=== PATIENT | female | born 1985 | race Caucasian/White ===

== ENCOUNTER → 2021-01-22 07:52 | Outpatient (CLI) | payer OTHER, SELFPAY ==
[2021-01-22] MEDS: COVID-19 VACC #1, MRNA(MOD) 100 MCG/0.5 ML VIAL IM (07:59)
== END ==
PROVIDERS: Visit Provider Internal Medicine
DX: Z23 Encounter for immunization (principal)
CPT/HCPCS: 0011A; 91301

== ENCOUNTER → 2021-02-19 15:24 | Outpatient (CLI) | payer OTHER, SELFPAY ==
[2021-02-19] MEDS: COVID-19 VACC #2, MRNA(MOD) 100 MCG/0.5 ML VIAL IM (15:32)
== END ==
PROVIDERS: Visit Provider Internal Medicine
DX: Z23 Encounter for immunization (principal)
CPT/HCPCS: 0012A; 91301

== ENCOUNTER → 2021-09-24 08:50 | Outpatient (CLI) | payer OTHER, SELFPAY ==
[2021-09-24] MEDS: COVID-19 VACC #3, MRNA(MOD) 50 MCG/0.25 ML VIAL IM (08:58)
== END ==
PROVIDERS: Visit Provider Internal Medicine
DX: Z23 Encounter for immunization (principal)
CPT/HCPCS: 0013A; 91301

== ENCOUNTER → 2023-07-13 07:37 | Outpatient (CLI) | payer OTHER, SELFPAY ==
--- NOTE | 2023-07-13 | DI.US.S_ITS ---
PROCEDURE: US EXTREMELY NONVASC UPPER RT INDICATIONS: RIGHT FOREARM LUMP TECHNIQUE: Real-time scanning was performed of the right forearm , with image documentation. COMPARISON: None. FINDINGS: No sonographically detectable abnormality within the right forearm. IMPRESSION: Negative ultrasound examination. MRI with and without intravenous contrast may be helpful for further assessment. Dictated by: Huyen Cannon M.D. on 07/13/2023 at 11:41 Approved by: Huyen Cannon M.D. on 07/13/2023 at 11:42
== END ==
PROVIDERS: Referring Provider Registered Nurse; Visit Provider Registered Nurse
DX: R22.31 Localized swelling, mass and lump, right upper limb (principal)
CPT/HCPCS: 76882